=== PATIENT | male | born 1975 | race Caucasian/White ===

== ENCOUNTER 2021-10-10 12:19 | Inpatient (IN) ==
[2021-10-10] MEDS ORDERED: VANCOMYCIN 1 GRAM/200 ML PREMIX 1 GM/200 ML BAG IV ONE (12:46)
[2021-10-10] MEDS ORDERED: TORADOL IVP ONE (12:46)
[2021-10-10] MEDS ORDERED: ZOSYN 3.375 GM 3.375 GM in SODIUM CHLORIDE 50 ML IV ONE (12:46)
[2021-10-10] MEDS ORDERED: SODIUM CHLORIDE 1,000 ML IV STA (12:46)
--- NOTE | 2021-10-10 12:53 | ED.PDOC ---
General ED Provider: Dr. JEANNA SPEAR MD Chief Complaint: Hand Pain/Injury Stated Complaint: mild to mod positional ache of the left hand getting worse for one week after ruptured a blister using a rake, no drainage, no fever, pt is right handed Time Seen by Provider: 10/10/21 12:43 Mode of Arrival: Walk-In Information Source: Patient Nursing and Triage Documentation Reviewed and Agree: Yes Does patient meet sepsis criteria?: No System Inflammatory Response Syndrome: Not Applicable Sepsis Protocol: For patient's 13 years and over: Temp is 96.8 and below OR 101 and greater Pulse >90 BPM Resp >20/minute Acutely Altered Mental Status Are patient's symptoms suggestive of a new infection, such as: -Pneumonia -Skin, Soft Tissue -Endocarditis -UTI -Bone, Joint Infection -Implantable Device -Acute Abdominal Infection -Wound Infection -Meningitis -Blood Stream Catheter Infection -Unknown Review of Systems Review Of Systems Constitutional: Denies Fever Eyes: Denies Vision change Ears, Nose, Mouth, Throat: Denies Throat pain Respiratory: Denies Short of air Cardiac: Denies Chest pain GI: Denies Abdominal pain : Denies Flank pain Musculoskeletal: Reports Joint pain, Joint swelling and Muscle stiffness Skin: Denies Cyanosis Neurological: Denies Cognitive dysfunction All Other Systems: Other Physical Exam Physical Exam Appearance: Reports No pain distress Ill-appearing: None Pain Distress: None Eyes: Reports Conjunctiva clear ENT: Reports Oropharynx normal Neck: Supple Respiratory: Reports Airway patent Cardiovascular: Reports RRR GI/: Reports Other (nondistended) Musculoskeletal: Reports Other (tender sts and erythema of left mid hand around an indolent palmar ulcer at base of the index finger w/ streaks on the volar forearm, rom limited by pain) Skin: Reports Warm and Dry Neurological: Reports Alert and Oriented Psychiatric: Reports Affect appropriate Interpretation Radiology Interpretation Radiology Interpretation By: Radiologist Xray Comments: nap left hand Critical Care Note Critical Care Note Total Critical Care Time (mins): 0 Course Course Hematology/Chemistry: 10/10/21 12:59 10/10/21 12:59 Orders, Labs, Meds: Lab Review 10/10/21 10/10/21 10/10/21 12:59 12:59 12:59 WBC 10.21 H RBC 4.69 L Hgb 14.2 Hct 40.4 L MCV 86.1 MCH 30.3 MCHC 35.1 RDW Coeff of Antione 11.9 Plt Count 251 Immature Gran % (Auto) 0.3 Neut % (Auto) 78.0 H Lymph % (Auto) 13.4 [place] % (Auto) 7.3 Eos % (Auto) 0.8 Baso % (Auto) 0.2 Neut # (Auto) 8.0 H Lymph # (Auto) 1.4 [place] # (Auto) 0.8 Eos # (Auto) 0.1 Baso # (Auto) 0.0 Immature Gran # (Auto) 0.0 Sodium 136.3 Potassium 4.44 Chloride 103.0 Carbon Dioxide 25.1 Anion Gap 12.64 BUN 12.7 Creatinine 0.83 Estimated GFR (MDRD) 101.00 BUN/Creatinine Ratio 15.30 Glucose 107.5 H Lactic Acid 0.63 L Calcium 8.76 Total Bilirubin 0.85 AST 22.5 ALT 10.7 Alkaline Phosphatase 71.7 Total Protein 7.35 Albumin 4.34 Globulin 3.01 Albumin/Globulin Ratio 1.44 Orders Category Date Time Status ADMIT PATIENT INPATIENT .TO [facility] (MONITORED BED) ADMISSION 10/10/21 13:42 Active ACTIVITY .Up ad Trice CARE 10/10/21 13:42 Active INTAKE & OUTPUT Q8HR CARE 10/10/21 13:42 Active IP: INSERT SALINE LOCK ONCE CARE 10/10/21 13:42 Active TELEMETRY MONITORING TELE CARE 10/10/21 13:42 Active VITAL SIGNS Q8HR CARE 10/10/21 13:42 Active REGULAR DIET DIETARY 10/10/21 Dinner Ordered BLOOD CULTURE Stat LAB 10/10/21 13:03 Received CBC W/ AUTO DIFF DAILY@0600 LAB 10/11/21 06:00 Ordered CBC W/ AUTO DIFF DAILY@0600 LAB 10/12/21 06:00 Ordered CBC W/ AUTO DIFF Stat LAB 10/10/21 12:59 Completed CMP [COMPREHENSIVE METABOLIC PANEL] Stat LAB 10/10/21 12:59 Completed COMPREHENSIVE METABOLIC PANEL DAILY@0600 LAB 10/11/21 06:00 Ordered COMPREHENSIVE METABOLIC PANEL DAILY@0600 LAB 10/12/21 06:00 Ordered LACTIC ACID Stat LAB 10/10/21 12:59 Completed Acetaminophen [Tylenol] MEDS 10/10/21 13:42 Ordered 650 mg PO 3-4XD PRN Ketorolac Tromethamine [Toradol] MEDS 10/10/21 12:46 Discontinued 30 mg IVP ONCE ONE Lorazepam [Ativan] MEDS 10/10/21 13:47 Ordered 1 mg PO 3-4XD PRN Piperacillin Sodium/Tazobactam [Zosyn 3.375 gm] 3.375 MEDS 10/10/21 12:46 Discontinued gm 0.9 % Sodium Chloride [Sodium Chloride] 50 ml IV ONCE Sodium Chloride 0.9% [Sodium Chloride] 1,000 ml MEDS 10/10/21 14:00 Ordered IV 75 mls/hr Sodium Chloride 0.9% [Sodium Chloride] 1,000 ml MEDS 10/10/21 12:46 Discontinued IV BOLUS Vancomycin/Water For Inj (Peg) [Vancomycin 1 Gram/200 MEDS 10/10/21 12:46 Discontinued ml Premix] 1 gm in 200 ml IV ONCE RESUSCITATION STATUS Routine OTHERS 10/10/21 13:42 Ordered HAND, LEFT 3 VIEWS Stat RADS 10/10/21 12:46 Completed Medications Generic Name Dose Route Start Last Admin Trade Name Freq PRN Reason Stop Dose Admin Acetaminophen 650 mg 10/10/21 13:42 Acetaminophen 325 Mg Tablet PO 3-4XD PRN Pain Sodium Chloride 1,000 mls @ 75 mls/hr 10/10/21 14:00 Sodium Chloride IV .[id number] JANI Lorazepam 1 mg 10/10/21 13:47 Lorazepam 1 Mg Tablet PO 3-4XD PRN Anxiety Discontinued Medications Generic Name Dose Route Start Last Admin Trade Name Freq PRN Reason Stop Dose Admin Sodium Chloride 1,000 mls @ 1,000 mls/hr 10/10/21 12:46 Sodium Chloride IV 10/10/21 13:45 BOLUS STA Piperacillin Sod/Tazobactam 50 mls @ 50 mls/hr 10/10/21 12:46 Sod 3.375 gm/ Sodium Chloride IV 10/10/21 13:45 ONCE ONE VANCOMYCIN/WATER FOR INJ (PEG) 1 gm in 200 mls @ 200 mls/hr 10/10/21 12:46 10/10/21 13:27 Vancomycin 1 Gram/200 Ml Premix IV 10/10/21 13:45 200 mls/hr ONCE ONE Administration Ketorolac Tromethamine 30 mg 10/10/21 12:46 10/10/21 13:26 Ketorolac Tromethamine 30 Mg/Ml Vial IVP 05/17/22 12:47 30 mg ONCE ONE Administration Vital Signs: Temp Pulse Resp BP Pulse Ox 10/10/21 12:22 97.7 F 62 18 120/75 96 Discharge Plan Discharge Patient Disposition: ADMITTED INPATIENT Discharge Problem: Cellulitis of hand, left Prescriptions: No Action No Reported Medications 0 Qty: 0 0RF ED Provider: JEANNA SPEAR Condition: Stable Physician Progress Note: []pt admitted to hospitalist for left hand cellulitis, zosyn q6 and vanc by Jihan matias the floor nurse will write the antibiotic orders
[2021-10-10 13:09] LABS: BASOPHILS % (AUTO) 0.2 % (0.0-3.0); EOSINOPHILS # (AUTO) 0.1 K/ul (0.0-0.7); EOSINOPHILS % (AUTO) 0.8 % (0.0-7.0); HEMATOCRIT 40.4 % (42.0-52.0); HEMOGLOBIN 14.2 g/dl (14.0-18.0); IMMATURE GRANULOCYTE % (AUTO) 0.3 % (0.0-5.0); LYMPHOCYTES # (AUTO) 1.4 K/uL (0.60-3.4); LYMPHOCYTES % (AUTO) 13.4 (10.0-50.0); MEAN CORPUSCULAR HEMOGLOBIN 30.3 pg (27.0-31.0); MEAN CORPUSCULAR HGB CONC 35.1 (31.8-35.4); MEAN CORPUSCULAR VOLUME 86.1 fl (80.0-94.0); MONOCYTES # (AUTO) 0.8 K/uL (0.4-2.0); MONOCYTES % (AUTO) 7.3 (0-10); PLATELET COUNT 251 10^3/uL (140-440); RDW COEFFICIENT OF VARIATION 11.9 % (11.6-14.8); RED BLOOD COUNT 4.69 10^6/ul (4.70-6.10); WHITE BLOOD COUNT 10.21 K/ul (4.2-10.2)
[2021-10-10 13:25] LABS: ALANINE AMINOTRANSFERASE 10.7 U/L (0-50); ALBUMIN 4.34 g/dL (3.5-5.0); ALKALINE PHOSPHATASE 71.7 U/L (38-126); ASPARTATE AMINO TRANSFERASE 22.5 U/L (17-59); BILIRUBIN,TOTAL 0.85 mg/dL (0.2-1.3); BLOOD UREA NITROGEN 12.7 mg/dL (9-20); CALCIUM 8.76 mg/dL (8.4-10.2); CARBON DIOXIDE 25.1 mmol/L (22-30.0); CREATININE 0.83 mg/dL (0.60-1.10); GLUCOSE 107.5 mg/dL (74-106); POTASSIUM 4.44 mmol/L (3.5-5.1); SODIUM 136.3 mmol/L (134.5-145); TOTAL PROTEIN 7.35 g/dL (6.3-8.2)
--- NOTE | 2021-10-10 13:26 | DI ---
EXAM: Left hand three-view HISTORY: Second finger proximal wound from [place] COMPARISON: None FINDINGS/IMPRESSION: No fracture or dislocation. Mild scattered osteoarthritis. No cortical destruct ion identified. Suggestion of soft tissue swelling second digit.
[2021-10-10] MEDS ORDERED: TYLENOL PO PRN (13:42)
[2021-10-10 14:42] LABS: MOLECULAR FLU B NEGATIVE BY NAAT (NEGATIVE)
[2021-10-10 14:54] LABS: MOLECULAR FLU A NEGATIVE BY NAAT (NEGATIVE)
[2021-10-10 16:42] VITALS: BMI 21.6
[2021-10-10] MEDS: ATIVAN PO PRN ×2 (16:53→19:49)
[2021-10-10] MEDS: ZOSYN 3.375 GM 3.375 GM in SODIUM CHLORIDE 50 ML IV SCH ×2 (18:09→23:41)
[2021-10-10] MEDS: SODIUM CHLORIDE 1,000 ML IV SCH (18:10)
[2021-10-10] MEDS: VANCOMYCIN 1 GRAM/200 ML PREMIX 1 GM/200 ML BAG IV SCH (20:39)
[2021-10-10] MEDS ORDERED: BENADRYL PO ONE (23:03)
[2021-10-11] MEDS: ATIVAN PO PRN ×4 (00:07→18:28)
[2021-10-11 05:11] LABS: BASOPHILS % (AUTO) 0.5 % (0.0-3.0); EOSINOPHILS # (AUTO) 0.2 K/ul (0.0-0.7); EOSINOPHILS % (AUTO) 2.4 % (0.0-7.0); HEMATOCRIT 33.8 % (42.0-52.0); HEMOGLOBIN 11.9 g/dl (14.0-18.0); IMMATURE GRANULOCYTE % (AUTO) 0.2 % (0.0-5.0); LYMPHOCYTES # (AUTO) 1.8 K/uL (0.60-3.4); LYMPHOCYTES % (AUTO) 19.8 (10.0-50.0); MEAN CORPUSCULAR HEMOGLOBIN 30.6 pg (27.0-31.0); MEAN CORPUSCULAR HGB CONC 35.2 (31.8-35.4); MEAN CORPUSCULAR VOLUME 86.9 fl (80.0-94.0); MONOCYTES # (AUTO) 0.6 K/uL (0.4-2.0); MONOCYTES % (AUTO) 6.7 (0-10); NEUTROPHILS # (AUTO) 6.3 K/ul (2.0-6.9); NEUTROPHILS % (AUTO) 70.4 % (42.2-75.2); PLATELET COUNT 221 10^3/uL (140-440); RED BLOOD COUNT 3.89 10^6/ul (4.70-6.10); WHITE BLOOD COUNT 8.86 K/ul (4.2-10.2)
[2021-10-11 05:26] LABS: ALANINE AMINOTRANSFERASE 11.7 U/L (0-50); ALBUMIN 3.53 g/dL (3.5-5.0); ALKALINE PHOSPHATASE 77.3 U/L (38-126); ASPARTATE AMINO TRANSFERASE 22.4 U/L (17-59); BILIRUBIN,TOTAL 0.22 mg/dL (0.2-1.3); BLOOD UREA NITROGEN 16.2 mg/dL (9-20); CALCIUM 8.12 mg/dL (8.4-10.2); CARBON DIOXIDE 26.7 mmol/L (22-30.0); CHLORIDE 107.1 mmol/L (98-107); CREATININE 0.91 mg/dL (0.60-1.10); GLUCOSE 128.9 mg/dL (74-106); POTASSIUM 4.09 mmol/L (3.5-5.1); SODIUM 138.7 mmol/L (134.5-145); TOTAL PROTEIN 6.19 g/dL (6.3-8.2)
[2021-10-11] MEDS ORDERED: TORADOL IVP ONE (05:51)
[2021-10-11] MEDS: ZOSYN 3.375 GM 3.375 GM in SODIUM CHLORIDE 50 ML IV SCH ×3 (06:12→17:12)
[2021-10-11] MEDS: VANCOMYCIN 1 GRAM/200 ML PREMIX 1 GM/200 ML BAG IV SCH ×2 (09:00→20:09)
--- NOTE | 2021-10-11 09:57 | PCM.PROG ---
Date Seen by Provider: 10/11/21 Time Seen by Provider: 07:45 Subjective: Patient was admitted yesterday with left hand cellulitis after a ruptured blister while was using a rake. He states that the swelling has improved only with Toradol. Has been on vancomycin and Zosyn for the pat 24 hours. Objective: Vitals: T=98.4 F, P=58, R=20, FK=571/65, SPO2=98 HEENT: [no Throat swelling] Neck: [No obvious swelling or JVD] Lungs: [Clinically clear Bilaterally with no wheezing or Rhonchi] CVS: [Regular S1 and S 2 Bradycardia ] Abdomen: [Benign ] Extremities: [Left hand swelling with minimal warmth, Healing blister area] Neurological: [Moves all extremities, No focal neurological dificites.] Skin: [Healing left hand blister] Lab/Tests/Diagnostic Imaging: [ Laboratory Results - last 24 hr 10/10/21 10/10/21 10/10/21 12:59 12:59 12:59 WBC 10.21 H RBC 4.69 L Hgb 14.2 Hct 40.4 L MCV 86.1 MCH 30.3 MCHC 35.1 RDW Coeff of Antione 11.9 Plt Count 251 Immature Gran % (Auto) 0.3 Neut % (Auto) 78.0 H Lymph % (Auto) 13.4 [place] % (Auto) 7.3 Eos % (Auto) 0.8 Baso % (Auto) 0.2 Neut # (Auto) 8.0 H Lymph # (Auto) 1.4 [place] # (Auto) 0.8 Eos # (Auto) 0.1 Baso # (Auto) 0.0 Immature Gran # (Auto) 0.0 Sodium 136.3 Potassium 4.44 Chloride 103.0 Carbon Dioxide 25.1 Anion Gap 12.64 BUN 12.7 Creatinine 0.83 Estimated GFR (MDRD) 101.00 BUN/Creatinine Ratio 15.30 Glucose 107.5 H Lactic Acid 0.63 L Calcium 8.76 Total Bilirubin 0.85 AST 22.5 ALT 10.7 Alkaline Phosphatase 71.7 Total Protein 7.35 Albumin 4.34 Globulin 3.01 Albumin/Globulin Ratio 1.44 Influ A Molecular Assay Influ B Molecular Assay SARS-CoV-2 Ag (Rapid) 10/10/21 10/10/21 10/11/21 14:02 14:02 04:59 WBC 8.86 RBC 3.89 L Hgb 11.9 L Hct 33.8 L D MCV 86.9 MCH 30.6 MCHC 35.2 RDW Coeff of [place]ione 12.0 Plt Count 221 Immature Gran % (Auto) 0.2 Neut % (Auto) 70.4 Lymph % (Auto) 19.8 [place] % (Auto) 6.7 Eos % (Auto) 2.4 Baso % (Auto) 0.5 Neut # (Auto) 6.3 Lymph # (Auto) 1.8 [place] # (Auto) 0.6 Eos # (Auto) 0.2 Baso # (Auto) 0.0 Immature Gran # (Auto) 0.0 Sodium Potassium Chloride Carbon Dioxide Anion Gap BUN Creatinine Estimated GFR (MDRD) BUN/Creatinine Ratio Glucose Lactic Acid Calcium Total Bilirubin AST ALT Alkaline Phosphatase Total Protein Albumin Globulin Albumin/Globulin Ratio Influ A Molecular Assay Negative by naat Influ B Molecular Assay Negative by naat SARS-CoV-2 Ag (Rapid) Negative 10/11/21 04:59 WBC RBC Hgb Hct MCV MCH MCHC RDW Coeff of [place]ione Plt Count Immature Gran % (Auto) Neut % (Auto) Lymph % (Auto) [place] % (Auto) Eos % (Auto) Baso % (Auto) Neut # (Auto) Lymph # (Auto) [place] # (Auto) Eos # (Auto) Baso # (Auto) Immature Gran # (Auto) Sodium 138.7 Potassium 4.09 Chloride 107.1 H Carbon Dioxide 26.7 Anion Gap 8.99 BUN 16.2 Creatinine 0.91 Estimated GFR (MDRD) 91.00 BUN/Creatinine Ratio 17.80 Glucose 128.9 H Lactic Acid Calcium 8.12 L Total Bilirubin 0.22 AST 22.4 ALT 11.7 Alkaline Phosphatase 77.3 Total Protein 6.19 L Albumin 3.53 Globulin 2.66 Albumin/Globulin Ratio 1.32 Influ A Molecular Assay Influ B Molecular Assay SARS-CoV-2 Ag (Rapid) ] (1) Cellulitis of hand, left: Status: Acute Code(s): L03.114 - Cellulitis of left upper limb SNOMED Code(s): 08571923 Assessment: Feeling only slightly better. Advised to give another 24 -48 hours to realized full benefit of antibiotics. WBC improved down from 10. Plan: Continue Current antibiotics Give TORADOL 30mg IV q6 hour PRN swelling or pain. Pharmacy To monitor vancomycin dose.
[2021-10-11] MEDS: TORADOL IVP SCH ×2 (12:08→18:18)
[2021-10-11] MEDS: NICODERM 21 MG TD SCH (13:07)
[2021-10-11] MEDS: SODIUM CHLORIDE 1,000 ML IV SCH (13:09)
[2021-10-12] MEDS: TORADOL IVP SCH ×4 (00:05→17:56)
[2021-10-12] MEDS: ZOSYN 3.375 GM 3.375 GM in SODIUM CHLORIDE 50 ML IV SCH ×5 (00:05→23:55)
[2021-10-12] MEDS: ATIVAN PO PRN ×4 (00:05→18:03)
[2021-10-12] MEDS: SODIUM CHLORIDE 1,000 ML IV SCH ×3 (05:03→08:57)
[2021-10-12 06:03] LABS: BASOPHILS % (AUTO) 0.4 % (0.0-3.0); EOSINOPHILS # (AUTO) 0.2 K/ul (0.0-0.7); HEMATOCRIT 33.8 % (42.0-52.0); HEMOGLOBIN 11.9 g/dl (14.0-18.0); IMMATURE GRANULOCYTE % (AUTO) 0.3 % (0.0-5.0); LYMPHOCYTES # (AUTO) 1.6 K/uL (0.60-3.4); LYMPHOCYTES % (AUTO) 16.4 (10.0-50.0); MEAN CORPUSCULAR HEMOGLOBIN 31.1 pg (27.0-31.0); MEAN CORPUSCULAR HGB CONC 35.2 (31.8-35.4); MEAN CORPUSCULAR VOLUME 88.3 fl (80.0-94.0); MONOCYTES # (AUTO) 0.8 K/uL (0.4-2.0); MONOCYTES % (AUTO) 8.1 (0-10); NEUTROPHILS # (AUTO) 7.1 K/ul (2.0-6.9); NEUTROPHILS % (AUTO) 72.8 % (42.2-75.2); PLATELET COUNT 221 10^3/uL (140-440); RDW COEFFICIENT OF VARIATION 11.9 % (11.6-14.8); RED BLOOD COUNT 3.83 10^6/ul (4.70-6.10)
[2021-10-12 06:17] LABS: ALANINE AMINOTRANSFERASE 11.9 U/L (0-50); ALBUMIN 3.52 g/dL (3.5-5.0); ALKALINE PHOSPHATASE 59.2 U/L (38-126); ASPARTATE AMINO TRANSFERASE 25.3 U/L (17-59); BILIRUBIN,TOTAL 0.37 mg/dL (0.2-1.3); BLOOD UREA NITROGEN 13.1 mg/dL (9-20); CALCIUM 8.19 mg/dL (8.4-10.2); CARBON DIOXIDE 25.8 mmol/L (22-30.0); CHLORIDE 108.8 mmol/L (98-107); CREATININE 0.94 mg/dL (0.60-1.10); GLUCOSE 105.6 mg/dL (74-106); POTASSIUM 4.25 mmol/L (3.5-5.1); SODIUM 139.9 mmol/L (134.5-145); TOTAL PROTEIN 6.21 g/dL (6.3-8.2)
[2021-10-12] MEDS: VANCOMYCIN 1 GRAM/200 ML PREMIX 1 GM/200 ML BAG IV SCH (08:57)
[2021-10-12] MEDS: NICODERM 21 MG TD SCH (09:04)
--- NOTE | 2021-10-12 10:16 | PCM.PROG ---
Date Seen by Provider: 10/12/21 Time Seen by Provider: 10:13 Subjective: pt improving, less swelling, less pain day 3 antibiotics pt requests benadryl hs to help sleeping pt asked not to leave the building to smoke no withdrawal reaction at this time Objective: Vitals: T=98.0 F, P=59, R=18, VR=704/73, SPO2=99 HEENT: []conjunctiva clear Neck: []supple Lungs: [] no respiratory distress CVS: [] Abdomen: []nondistended Extremities: []rom improving in left hand Neurological: []alert and oriented Skin: []no cyanosis Lab/Tests/Diagnostic Imaging: [] (1) Cellulitis of hand, left: Status: Acute Code(s): L03.114 - Cellulitis of left upper limb SNOMED Code(s): 65992344 Assessment: improving cellulitis Plan: discharge home tomorrow care to Dr Nguyen at 19:00
[2021-10-12] MEDS ORDERED: BENADRYL PO SCH (21:00)
[2021-10-12] MEDS: VANCOMYCIN 1.5 GRAM/300 ML PREMIX 1.5 GM/300 ML BAG IV SCH (21:11)
[2021-10-13] MEDS: TORADOL IVP SCH ×2 (00:34→06:03)
[2021-10-13] MEDS: ATIVAN PO PRN ×3 (00:34→11:03)
[2021-10-13 05:24] VITALS: BP 123/66; TEMP 97
[2021-10-13] MEDS: ZOSYN 3.375 GM 3.375 GM in SODIUM CHLORIDE 50 ML IV SCH (05:45)
--- NOTE | 2021-10-13 08:11 | PCM.PROG ---
Date Seen by Provider: 10/13/21 Time Seen by Provider: 07:10 Subjective: "I feel pretty good" Objective: Vitals: T=97.0 F, P=49, R=16, UL=862/66, SPO2=99 HEENT: ATNC, EOMI, PERRLA Neck: supple Lungs: Clear toA/P CVS: RRR Abdomen: benign Extremities: Wound on hand with spontaneous drainage. No lymphangiitis, fever or abscess Neurological: distal SROM intact Lab/Tests/- None today (1) Cellulitis of hand, left: Status: Acute Code(s): L03.114 - Cellulitis of left upper limb SNOMED Code(s): 13243255 Assessment: Improving on IV abx. Will switch to po and discharge home today. Plan: Home with daily dressings. Follow up with PCP or hand surgery for eval on Saturday.
--- NOTE | 2021-10-13 08:17 | PCM.DC ---
Final Diagnosis: Left hand cellulitis Physical Exam Appearance: Well-appearing, No pain distress and Well-nourished Ill-appearing: None Pain Distress: None Eyes: LEXI, EOMI and Conjunctiva clear ENT: Ears normal, Nose normal and Oropharynx normal Neck: Supple Respiratory: Airway patent, Breath sounds clear and Breath sounds equal Cardiovascular: RRR, Pulses normal, No rub and No murmur GI/: Soft, Nontender, No masses and Bowel sounds normal Musculoskeletal: Normal strength, ROM intact, No edema and No calf tenderness Skin: Warm, Dry and Normal color Neurological: Sensation intact, Motor intact, Reflexes intact, Cranial nerves intact, Alert and Oriented Psychiatric: Affect appropriate and Mood appropriate (1) Cellulitis of hand, left: Status: Acute Code(s): L03.114 - Cellulitis of left upper limb SNOMED Code(s): 58415410 Reason for Hospitalization: Cellulitis of left hand Prognosis/Condition at Discharge: Dishcharged home on po antibiotics in good condition Medications at Discharge: Ambulatory Orders Augmentin 875 bid Medication Instructions Recorded 1 [No Reported Medications] 10/10/21 Education Provided to Patient and Family: Daily dressing changes Follow-ups: PCP follow up Saturday for eval and possible hand surgery follow up. Discharge Disposition: Home Hospital Course: 46 year old male with left hand cellulitis admitted 10/10/2021 and started on IV antibiotics. Greatly improved and ready for discharge home today. Plan: Daily dressings, home with po antibiotics, elevate hand as much as possible. Recheck with PCP Saturday
[2021-10-13] MEDS: NICODERM 21 MG TD SCH (08:29)
[2021-10-13] MEDS: VANCOMYCIN 1.5 GRAM/300 ML PREMIX 1.5 GM/300 ML BAG IV SCH (08:30)
[2021-10-13] MEDS: SODIUM CHLORIDE 1,000 ML IV SCH ×2 (08:38→09:45)
== END 2021-10-13 11:50 | disposition home or self-care (01) | DRG 603 ==
LOC: ED 12:19 → MEDSURG A 15:41
PROVIDERS: ADMIT Emergency Medicine Emergency Medical Services; ATTEND Emergency Medicine
DX: L03.114 Cellulitis of left upper limb; B96.89 Other specified bacterial agents as the cause of diseases classified elsewhere